=== PATIENT | female | born 1955 | race Caucasian/White ===

== ENCOUNTER 2016-07-10 21:37 | Emergency (ER) | payer OTHER ==
--- NOTE | 2016-07-10 22:03 | UCPHY ---
H & P Patient Type: New Time Seen by Provider: 07/10/16 22:00 HPI/ROS: Chief complaint: right ankle pain HPI: 61-year-old female inverted her ankle when she misstepped yesterday morning. She has had persistent pain with ambulation at that site. Has been taking Motrin with minimal relief. She is also rapid. Pain is persisted. No prior injuries. No numbness or tingling. ROS: 10 point Review of Systems is negative except as noted in the HPI. Past medical history: None Physical exam: General: Awake, alert, no acute distress Right leg: No knee pain, no proximal fibular tenderness, full range of motion of pain. Right ankle: She has got tenderness over the lateral malleolus. Minimal swelling. No ecchymosis. No medial tenderness. No Camila tenderness or foot tenderness. Cap refills less than 3 seconds. 2+ DP and PT pulses. Sensations intact in all dermatomes. Skin: No rash - Family History Significant Family History: No pertinent family hx Constitutional: Initial Vital Signs Temperature (C) 35.7 C L 07/10/16 22:02 Heart Rate 71 07/10/16 22:02 Respiratory Rate 16 07/10/16 22:02 Blood Pressure 158/79 H 07/10/16 22:02 O2 Sat (%) 96 07/10/16 22:02 O2 Delivery Mode Room Air Allergies/Adverse Reactions: meperidine [From Demerol] Allergy (Verified 07/10/16 22:02) Sulfa (Sulfonamide Antibiotics) Allergy (Verified 07/10/16 22:02) Home Medications: Medication Instructions Recorded NK [No Known Home Meds] 07/10/16 Medical Decision Making - Diagnostics Imaging Results: Imaging Impressions Ankle X-Ray 07/10/16 21:52 Impression: No fracture. Imaging: I viewed and interpreted images myself ED Course/Re-evaluation: Patient placed in a Velcro stirrup splint and given crutches. She will follow up with primary care physician about a week. Departure - Departure Disposition: Home, Routine, Self-Care Clinical Impression: Ankle sprain Condition: Good Instructions: Ankle Sprain (ED), Ankle Stirrup Splint (ED), Crutch Instructions (ED) Additional Instructions: He may alternate ibuprofen and acetaminophen every 4 hours as needed for aches and pains. Apply ice for 15 minutes for every hour while awake. Follow up with primary care physician in 5-7 days for re-evaluation. Referrals: NONE *PRIMARY CARE P,. [Primary Care Provider] - As per Instructions - PQRS PQRS Measurement: NA
[2016-07-10 22:05] VITALS: BP 158/79; PULSE 71; RESP 16; TEMP 96.2; O2SAT 96
== END 2016-07-10 23:15 | disposition home or self-care (01) ==
LOC: CED 21:37
DX: S93.401A Sprain of unspecified ligament of right ankle, initial encounter (principal); X50.0XXA Overexertion from strenuous movement or load, initial encounter; Y92.019 Unspecified place in single-family (private) house as the place of occurrence of the external cause
CPT/HCPCS: 73610-PO; 99203-PO; G0463-PO